=== PATIENT | male | born 2000 | race African-American/Black ===

== ENCOUNTER 2021-12-19 14:35 | Emergency (ER) | payer MEDICAID ==
[~2021-12-19] VITALS: Ht 177.8 cm; Wt 88.6 kg
[2021-12-19 14:58] VITALS: TEMP 98.3
[2021-12-19] MEDS ORDERED: FLEXERIL 1010 MG/TAB PO (16:07)
[2021-12-19 16:42] VITALS: BP 132/83; PULSE 62
== END 2021-12-19 16:42 | disposition home or self-care (01) ==
LOC: COL.ER 14:35
DX: S29.012A Strain of muscle and tendon of back wall of thorax, initial encounter (principal); Z28.310 Unvaccinated for COVID-19; X50.0XXA Overexertion from strenuous movement or load, initial encounter; Y92.59 Other trade areas as the place of occurrence of the external cause; Y99.0 Civilian activity done for income or pay